=== PATIENT | male | born 1990 | race Caucasian/White ===

== ENCOUNTER 2022-02-03 16:30 | Emergency (ER) | payer OTHER ==
[~2022-02-03] VITALS: Ht 175.3 cm; Wt 70.5 kg
[2022-02-03 16:31] VITALS: BP 126/61
== END 2022-02-03 19:44 | disposition home or self-care (01) ==
LOC: M ED 16:30
DX: S93.401A Sprain of unspecified ligament of right ankle, initial encounter (principal); W19.XXXA Unspecified fall, initial encounter; Y92.9 Unspecified place or not applicable; Y93.9 Activity, unspecified; Y99.9 Unspecified external cause status